=== PATIENT | male | born 1945 | race Caucasian/White ===

== ENCOUNTER → 2018-07-10 | Outpatient (CLI) | payer OTHER ==
--- NOTE | 2018-07-10 14:49 | PCVCIMAG ---
APPROVED REPORT Study performed: 07/10/2018 12:03:50 EXAM: Comprehensive 2D, Doppler, and color-flow Echocardiogram Patient Location: Echo lab Room #: 2Status: routine BSA: 2.12 HR: 101 bpmBP: 132/88 mmHg Rhythm: NSR 1ST DEGREE av JEFF Other Information Study Quality: Good Risk Factors: Cardiac Risk Factors: HTN, Hyperlipidemia, DM Indications COPD Diabetes Dyspnea Tachycardia Hypertension/HDD 2D Dimensions IVSd: 9.14 (7-11mm)LVOT Diam: 22.05 (18-24mm) LVDd: 59.23 mm PWd: 6.91 (7-11mm)Ascending Ao: 34.30 (22-36mm) LVDs: 51.82 (25-40mm) Left Atrium: 45.36 (27-40mm) Aortic Root: 26.02 mm LV Single Plane 4CH: 28.76 % LV Single Plane 2CH: 24.11 % Biplane EF: 26.5 % Volumes Left Atrial Volume (Systole) Single Plane 4CH: 105.67 mLSingle Plane 2CH: 93.17 mL Biplane LA Volume: 104.00 mLLA ESV Index: 49.00 mL/m2 Aortic Valve AoV Peak Matti.: 1.08 m/s AO Peak Gr.: 6.16 mmHgLVOT Max P.21 mmHg LVOT Max V: 0.52 m/s EFRAÍN Vmax: 1.83 cm2 Mitral Valve MV Peak Gr.: 6.19 mmHg MV Mean Gr.: 1.75 mmHg MV Max Matti.: 4.78 m/s MV Mean Matti.: 3.44 m/s MV VTI: 249.99 mm TDI Lateral E' Matti.: 0.11 m/s Pulmonary Valve PV Peak Matti.: 0.71 m/sPV Peak Gr.: 2.04 mmHg Pulmonary Vein P Vein S: 0.32 m/sP Vein A: 0.42 m/s P Vein D: 0.66 m/sP Vein A Dur.: 110.7 msec P Vein S/D Ratio: 0.48 Tricuspid Valve TR Peak Matti.: 2.94 m/s TR Peak Gr.: 34.63 mmHg TV Vmax: 0.72 m/sPA Pressure: 42.00 mmHg Left Ventricle Left ventricle is mildly dilated. The apex is mildly dilated. There is severe global hypokinesis of the left ventricle. Distal septal and apical akinesis is seen There is normal left ventricular wall thickness. Left ventricular ejection fraction is severely decreased. LVEF is 25-30%. This study is not technically sufficient to allow evaluation of the LV diastolic function. Right Ventricle The right ventricle is normal size. The right ventricular systolic function is normal. Atria Left atrium is severely dilated. Right atrium is moderately dilated. Aortic Valve Aortic valve is trileaflet. Trace to mild aortic regurgitation. There is no aortic valvular stenosis. Mitral Valve The mitral valve is normal in structure. Moderate mitral regurgitation. No evidence of mitral valve stenosis. Tricuspid Valve The tricuspid valve is normal in structure. Moderate tricuspid regurgitation with a PA pressure of 42 mmHg. Moderate pulmonary hypertension. Pulmonic Valve The pulmonary valve is normal in structure. Trace to mild pulmonic regurgitation. Great Vessels The aortic root is normal in size. The ascending aorta is normal in size. Aortic arch is not well visualized. IVC is dilated and collapses <50% with inspiration. Pericardium There is no pericardial effusion. There is no pleural effusion. <Conclusion> Left ventricle is mildly dilated. The apex is mildly dilated. There is severe global hypokinesis of the left ventricle. Distal septal and apical akinesis is seen LVEF is 25-30%. This study is not technically sufficient to allow evaluation of the LV diastolic function. The right ventricle is normal size. Left atrium is severely dilated. Right atrium is moderately dilated. Trace to mild aortic regurgitation. Moderate mitral regurgitation. Moderate tricuspid regurgitation with a PA pressure of 42 mmHg. Moderate pulmonary hypertension. The aortic root is normal in size. There is no pericardial effusion.
== END | disposition home or self-care (01) ==
LOC: PCVCCLINIC 11:00
PROVIDERS: ATTEND Internal Medicine Cardiovascular Disease
DX: I10 Essential (primary) hypertension (principal); E11.9 Type 2 diabetes mellitus without complications; R06.09 Other forms of dyspnea; J44.9 Chronic obstructive pulmonary disease, unspecified; R00.0 Tachycardia, unspecified
CPT/HCPCS: 93306

== ENCOUNTER → 2018-07-19 | Outpatient (CLI) | payer OTHER | END | disposition home or self-care (01) | LOC: PCVCCLINIC 15:43 | PROVIDERS: ATTEND Internal Medicine Cardiovascular Disease | DX: I10 Essential (primary) hypertension (principal); I42.9 Cardiomyopathy, unspecified; E11.9 Type 2 diabetes mellitus without complications; E78.00 Pure hypercholesterolemia, unspecified; G47.30 Sleep apnea, unspecified; J44.9 Chronic obstructive pulmonary disease, unspecified; Z87.891 Personal history of nicotine dependence | CPT/HCPCS: 36415; 93005; G0463 ==

== ENCOUNTER → 2018-08-02 | Outpatient (CLI) | payer OTHER | END | disposition home or self-care (01) | LOC: PCVCCLINIC 12:00 | PROVIDERS: ATTEND Internal Medicine Cardiovascular Disease | DX: E11.9 Type 2 diabetes mellitus without complications (principal); E78.00 Pure hypercholesterolemia, unspecified; J44.9 Chronic obstructive pulmonary disease, unspecified; I11.0 Hypertensive heart disease with heart failure; I50.43 Acute on chronic combined systolic (congestive) and diastolic (congestive) heart failure; Z88.8 Allergy status to other drugs, medicaments and biological substances; Z87.891 Personal history of nicotine dependence; Z72.89 Other problems related to lifestyle | CPT/HCPCS: 36415 ==

== ENCOUNTER → 2018-09-19 | Outpatient (CLI) | payer OTHER ==
--- NOTE | 2018-09-19 14:41 | PCVCIMAG ---
APPROVED REPORT Study performed: 09/19/2018 12:57:54 EXAM: Comprehensive 2D, Doppler, and color-flow Echocardiogram Patient Location: Echo lab Status: routine BSA: 2.04 HR: 80 bpmBP: 120/82 mmHg Rhythm: NSR Other Information Study Quality: Good Risk Factors: Cardiac Risk Factors: HTN, Hyperlipidemia, DM Indications Diabetes Cardiomyopathy Hypertension/HDD 2D Dimensions IVSd: 11.64 (7-11mm)LVOT Diam: 22.00 (18-24mm) LVDd: 40.35 mm PWd: 12.86 (7-11mm)Ascending Ao: 33.75 (22-36mm) LVDs: 31.54 (25-40mm) Left Atrium: 31.99 (27-40mm) Aortic Root: 34.35 mm LV Single Plane 4CH: 42.39 % LV Single Plane 2CH: 35.61 % Biplane EF: 39.4 % Volumes Left Atrial Volume (Systole) Single Plane 4CH: 63.57 mLSingle Plane 2CH: 73.65 mL LA ESV Index: 36.00 mL/m2 Aortic Valve AoV Peak Matti.: 1.25 m/s AO Peak Gr.: 6.25 mmHgLVOT Max P.85 mmHg LVOT Max V: 0.84 m/s EFRAÍN Vmax: 2.60 cm2 Mitral Valve E/A Ratio: 2.1 MV Decel. Time: 107.35 ms MV E Max Matti.: 0.89 m/s MV A Matti.: 0.43 m/s IVRT: 83.04 ms TDI E/Lateral E': 17.80E/Medial E': 22.25 Medial E' Matti.: 0.04 m/s Lateral E' Matti.: 0.05 m/s Pulmonary Valve PV Peak Matti.: 0.77 m/sPV Peak Gr.: 2.36 mmHg Pulmonary Vein P Vein S: 0.46 m/sP Vein A: 0.23 m/s P Vein D: 0.39 m/sP Vein A Dur.: 103.8 msec P Vein S/D Ratio: 1.18 Tricuspid Valve TR Peak Matti.: 2.44 m/sRAP Estimate: 7.00 mmHg TR Peak Gr.: 23.77 mmHg PA Pressure: 31.00 mmHg Left Ventricle The left ventricle is normal size. Global hypokinesis with distal septal akinesis. Mild concentric left ventricular hypertrophy. Left ventricular systolic function is moderate to severely decreased. LVEF is 35-40%. Moderate diastolic dysfunction is present (pseudonormal filling). Right Ventricle The right ventricle is normal size. The right ventricular systolic function is normal. Atria Left atrium is dilated. Right atrium is dilated. Aortic Valve The aortic valve is normal in structure. No aortic regurgitation is present. There is no aortic valvular stenosis. Mitral Valve The mitral valve is normal in structure. Moderate mitral regurgitation. No evidence of mitral valve stenosis. Tricuspid Valve The tricuspid valve is normal in structure. Mild tricuspid regurgitation. Pulmonary artery pressure is 31 mmHg. Pulmonic Valve The pulmonary valve is normal in structure. Trace pulmonic regurgitation. Great Vessels The aortic root is normal in size. The ascending aorta is normal in size. IVC is normal in size and collapses >50% with inspiration. Pericardium There is no pericardial effusion. <Conclusion> The left ventricle is normal size. Mild concentric left ventricular hypertrophy. Global hypokinesis with distal septal akinesis. LVEF is 35-40%. Moderate diastolic dysfunction is present (pseudonormal filling). The right ventricle is normal size. Left atrium is dilated. Right atrium is dilated. The aortic valve is normal in structure. Moderate mitral regurgitation. Mild tricuspid regurgitation. Pulmonary artery pressure is 31 mmHg. The aortic root is normal in size. There is no pericardial effusion.
== END | disposition home or self-care (01) ==
LOC: PCVCIMAG 12:49
PROVIDERS: ATTEND Internal Medicine Cardiovascular Disease
DX: I42.9 Cardiomyopathy, unspecified (principal); E78.00 Pure hypercholesterolemia, unspecified; I11.0 Hypertensive heart disease with heart failure; I50.23 Acute on chronic systolic (congestive) heart failure; E11.9 Type 2 diabetes mellitus without complications; J44.9 Chronic obstructive pulmonary disease, unspecified; Z88.8 Allergy status to other drugs, medicaments and biological substances
CPT/HCPCS: 93306